=== PATIENT | male | born 1985 | race Caucasian/White ===

== ENCOUNTER 2016-10-22 16:19 | Emergency (ER) | payer SELFPAY ==
[~2016-10-22] VITALS: Ht 172.7 cm; Wt 60.0 kg
[~2016-10-22 16:19] MED LIST: IBUP-1542 PO
[2016-10-22 16:24] VITALS: Ht 172.7 cm; Wt 60.0 kg
[2016-10-22 19:07] LABS: ADD SCAN DIFF NO
[2016-10-22 19:10] LABS: BASOPHIL # 0.1 10^3/ul (0.0-0.1); BASOPHILS % 0.6 % (0.0-2.0); EOSINOPHILS # 0.2 10^3/ul (0.0-0.5); EOSINOPHILS % 1.9 % (0.0-7.0); HEMATOCRIT 45.2 % (42.0-52.0); HEMOGLOBIN 15.6 g/dl (14.0-18.0); LYMPHOCYTES # 3.3 10^3/ul (0.8-2.9); LYMPHOCYTES % 32.2 % (15.0-51.0); MEAN CORPUSCULAR HEMOGLOBIN 29.2 pg (29.0-33.0); MEAN CORPUSCULAR HGB CONC 34.5 g/dl (32.0-37.0); MEAN CORPUSCULAR VOLUME 84.6 fl (82.0-101.0); MEAN PLATELET VOLUME 9.6 fl (7.4-10.4); MONOCYTE # 0.8 10^3/ul (0.3-0.9); MONOCYTES % 8.3 % (0.0-11.0); NEUTROPHIL # 5.7 10^3/ul (1.6-7.5); NEUTROPHILS % 56.8 % (39.0-77.0); PLATELET COUNT 292 10^3/UL (140-415); RED BLOOD COUNT 5.34 10^6/ul (4.70-6.10); RED CELL DISTRIBUTION WIDTH 12.3 % (11.5-14.5); WHITE BLOOD COUNT 10.1 10^3/ul (4.8-10.8)
--- NOTE | 2016-10-22 19:13 | RADRPT ---
PROCEDURE: CT abdomen and pelvis with. contrast. CLINICAL INDICATION: Abdominal pain TECHNIQUE: Noncontrast CT examination of the abdomen and pelvis, with axial, sagittal and coronal r eformatted images. CTDI: 8.41 mGy and DLP: 446.86 mGy-cm. COMPARISON: None. FINDINGS: CT abdomen: The lung bases are clear. The heart size is normal, without pericardial thickening or effusion. The liver is normal in size and density without focal mass or intrahepatic biliary dilatation. The spleen is normal in size and homogeneous in density. The stomach is partially collapsed, but is jena ssly unremarkable. The pancreas as visualized is normal. The gallbladder and biliary tree are unre markable and there is no evidence for biliary dilatation. The adrenal glands are symmetric and norm al. The kidneys are symmetrically unremarkable as well. No renal calculus or obstructive uropathy o r mass lesion is seen. The aorta is of normal caliber. There is no retroperitoneal lymphadenopathy. The raymon hepatis reg ion is clear. The bowel and mesentery, as visualized, are equally unremarkable. CT pelvis: The small bowel loops situated within the pelvis are unremarkable. The pelvic organs are normal. T he pelvic sidewalls and inguinal regions are clear. The sigmoid colon and rectum are all unremarkab le. No mass, lymphadenopathy, or free fluid is seen. No acute inflammation is seen. The appendix is unremarkable. The surrounding osseous structures are remarkable for mild degenerative spondylosis of the spine. N o osteolytic or osteoblastic lesion is detected. IMPRESSION: Unremarkable CT scan of the abdomen and pelvis. RPTAT: [facility] Physician Marina Date Time Electronically viewed and signed by Physician Marina on 10/22/2016 19:13 RS/
[2016-10-22 19:19] LABS: ALBUMIN 5.4 g/dl (3.3-4.9)
[2016-10-22 19:20] LABS: ADD UMIC YES; URINE BILIRUBIN (Dip) NEGATIVE (NEGATIVE); URINE BLOOD (Dip) 2+ (NEGATIVE); URINE COLOR LT. YELLOW (YELLOW); URINE GLUCOSE (Dip) NEGATIVE (NEGATIVE); URINE KETONES (Dip) 15 (NEGATIVE); URINE LEUKOCYTE ESTERASE (Dip) NEGATIVE (NEGATIVE); URINE NITRITE (Dip) NEGATIVE (NEGATIVE); URINE TOTAL PROTEIN (Dip) NEGATIVE (NEGATIVE); URINE UROBILINOGEN (Dip) 0.2 E.U./dL (0.1-1.0)
[2016-10-22 19:20] LABS: POTASSIUM 3.9 mmol/L (3.5-5.1)
[2016-10-22 19:22] LABS: ALBUMIN/GLOBULIN RATIO 1.38; BILIRUBIN,INDIRECT 0.6 mg/dl (0-1.1); BILIRUBIN,TOTAL 0.6 mg/dl (0.2-1.3); CREATININE 0.91 mg/dl (0.61-1.24); TOTAL PROTEIN 9.3 g/dl (6.1-8.1)
[2016-10-22 19:41] LABS: BACTERIA,URINE FEW
[2016-10-22] MEDS ORDERED: POLY17PO6 PO (19:57)
[2016-10-22] MEDS ORDERED: IBUP-1542 PO (19:57)
--- NOTE | 2016-10-22 20:00 | ERD ---
ER Documentation Chief Complaint Date/Time DATE: 10/22/16 TIME: 19:57 Chief Complaint constipation x 3 days , abd pain , vomiting today HPI This 31-year-old male presents with subjective fevers for the last 3 days with no fever triage. He vomited once today and nonbilious nonbloody. He has a history of an abdominal for 3 days as well. He has a history of constipation. He is passing flatus. Some mild left abdominal pain ROS All systems reviewed and are negative except as per history of present illness. Medications Home Meds Active Scripts Polyethylene Glycol* (Miralax*) 17 Gm Powd.pack, 17 GM PO DAILY, #15 Prov:ANGELIKA CARRILLO MD 10/22/16 Ibuprofen* (Motrin*) 600 Mg Tab, 600 MG PO Q6, #20 TAB Prov:ANGELIKA CARRILLO MD 10/22/16 Ibuprofen* (Motrin*) 600 Mg Tab, 600 MG PO Q6, #30 TAB Prov:BEST DAY PA-C 01/03/16 Allergies Allergies: Coded Allergies: No Known Drug Allergies (Verified Allergy, Unknown, 10/22/16) PMhx/Soc Medical and Surgical Hx: pt denies Surgical Hx Anesthesia Reaction: No Hx Neurological Disorder: No Hx Respiratory Disorders: No Hx Cardiac Disorders: Yes (HIGH CHOLESTEROL) Hx Psychiatric Problems: No Hx Miscellaneous Medical Probl: No Hx Alcohol Use: Yes (OCCASIONAL) Hx Substance Use: Yes (COCAINE IN PAST) Hx Tobacco Use: No Smoking Status: Never smoker Physical Exam Vitals Vital Signs Date Time Temp Pulse Resp B/P Pulse Ox O2 Delivery O2 Flow Rate FiO2 10/22/16 16:24 98.7 88 18 129/82 98 Physical Exam Const: [] Alert, not ill-appearing. Head: Atraumatic Eyes: Normal Conjunctiva ENT: Normal External Ears, Nose and Mouth. Neck: Full range of motion..~ No meningismus. Resp: Clear to auscultation bilaterally Cardio: Regular rate and rhythm, no murmurs Abd: Soft, minimal left abdominal tenderness without tenderness at McBurney' s point no Moses sign., non distended. Normal bowel sounds Skin: No petechiae or rashes Back: No midline or flank tenderness Ext: No cyanosis, or edema Neur: Awake and alert Psych: Normal Mood and Affect Result Diagram: 10/22/16184910/22/161849 Results 24 hrs Laboratory Tests Test 10/22/16 18:50 10/22/16 18:55 White Blood Count 10.110^3/ul Red Blood Count 5.3410^6/ul Hemoglobin 15.6g/dl Hematocrit 45.2% Mean Corpuscular Volume 84.6fl Mean Corpuscular Hemoglobin 29.2pg Mean Corpuscular Hemoglobin Concent 34.5g/dl Red Cell Distribution Width 12.3% Platelet Count 54632^3/UL Mean Platelet Volume 9.6fl Neutrophils % 56.8% Lymphocytes % 32.2% Monocytes % 8.3% Eosinophils % 1.9% Basophils % 0.6% Nucleated Red Blood Cells % 0.0/100WBC Neutrophils # 5.710^3/ul Lymphocytes # 3.310^3/ul Monocytes # 0.810^3/ul Eosinophils # 0.210^3/ul Basophils # 0.110^3/ul Nucleated Red Blood Cells # 0.010^3/ul Sodium Level 141mmol/L Potassium Level 3.9mmol/L Chloride Level 99mmol/L Carbon Dioxide Level 26mmol/L Anion Gap 20 Blood Urea Nitrogen 12mg/dl Creatinine 0.91mg/dl Glucose Level 110mg/dl Calcium Level 10.0mg/dl Total Bilirubin 0.6mg/dl Direct Bilirubin 0.00mg/dl Indirect Bilirubin 0.6mg/dl Aspartate Amino Transf (AST/SGOT) 24IU/L Alanine Aminotransferase (ALT/SGPT) 19IU/L Alkaline Phosphatase 81IU/L Total Protein 9.3g/dl Albumin 5.4g/dl Globulin 3.90g/dl Albumin/Globulin Ratio 1.38 Urine Color LT. YELLOW Urine Clarity CLEAR Urine pH 6.5 Urine Specific [place] 1.010 Urine Ketones 15 Urine Nitrite NEGATIVE Urine Bilirubin NEGATIVE Urine Urobilinogen 0.2 E.U./dL Urine Leukocyte Esterase NEGATIVE Urine Microscopic RBC 10-25/HPF Urine Microscopic WBC 0-2/HPF Urine Epithelial Cells OCCASIONAL Urine Bacteria FEW Urine Hemoglobin 2+ Urine Glucose NEGATIVE% Urine Total Protein NEGATIVE Procedures/MDM Given possible fever abdominal pain CBC was obtained which is normal. CMP is normal. Urine shows 2+ hemoglobin otherwise no leukocytes, nitrites or glucose. CT abdomen and pelvis shows no evidence of obstruction, abscess, diverticulitis, appendicitis. Patient has subjective fevers without current fever, vomiting 1 and a history of constipation. May have a viral illness. We treated with ibuprofen and MiraLAX and further observation. Patient should return for vomiting, blood, worsening abdominal pain, new worsening symptoms in the next day otherwise patient is referred to local community health clinics for primary care. The patient was stable with no new complaints during the ER course. Clinically, there is no current evidence to suggest meningitis, sepsis, acute abdomen, pneumonia, acute coronary syndrome, pulmonary embolism, or any other emergent condition appearing to require further evaluation or hospitalization. The patient should certainly return for any new or worsening symptoms per the aftercare instructions. They should otherwise follow-up with her primary care doctor for reevaluation this week. Departure Diagnosis: Primary Impression: Constipation Constipation type: unspecified constipation type Qualified Code: K59.00 - Constipation, unspecified constipation type Condition: Stable Patient Instructions: Constipation (Adult), Hematuria Ref[facility] Usted se medeiros hecho un examen mdico de control que le indica que no est en wm condicin que requiera tratamiento urgente en el Departamento de Emergencia. Un estudio ms profundo y el tratamiento de schroeder condicin pueden esperar sin ningn riesgo hasta que usted sea atendida/o en el consultorio de schroeder mdico o wm cl kwabena. Es responsabilidad suya arreglar wm madina para el seguimiento del hazel. MANEJO DE CONDICIONES NO URGENTES EN EL FUTURO 1) Si usted tiene un mdico de atencin primaria: Usted debera llamar a schroeder mdico de atencin primaria antes de venir al departamento de emergencia. Despus de las horas de consultorio, schroeder doctor o schroeder asociado/a est disponible por telfono. El mdico o enfermero de reina en el servicio telefnico puede asesorarle por ashley medio para atender el problema, o hazel contrario se puede programar wm madina. 2) Si usted no tiene un mdico de atencin primaria: Llame al mdico o clnica de referencia que aparece abajo adrianna las horas de consultorio para hacer wm madina para que le vean. CLINICAS: [place] [id number] [phone] [address] [facility] [address] [phone] [place] [address] [phone] [place] [address] [phone] [place] [address] [phone] [facility]. [phone] [address] Additional Instructions: Examines normal hoy. DEE MUCH AGUA. Cheque otro vez con schroeder doctor primario en el proximo piedra or regresa para mas o nueva simptomas. ANGELIKA CARRILLO MD Oct 22, 2016 20:00
[2016-10-22 20:25] VITALS: BP 148/87; PULSE 63; RESP 14; TEMP 99.1
== END 2016-10-22 20:28 | disposition home or self-care (01) ==
LOC: FTE 16:19
DX: K59.00 Constipation, unspecified (principal)
CPT/HCPCS: 36415; 74176; 80053; 81001; 81003; 85025